=== PATIENT | male | born 1955 ===

== ENCOUNTER 2017-03-09 19:01 | Emergency (ER) | payer BC, OTHER ==
[2017-03-09] MEDS ORDERED: HYDROcodone/Acetaminophen 10/325 mg Tablet ONE (19:16)
--- NOTE | 2017-03-09 21:10 | CT ---
CT PELVIS WITHOUT CONTRAST 03/09/[address] was done following trauma. Axial slices were acquired, the coronal and sagittal taylor nstructions were done. No fracture, dislocation, or acute bony change was seen. The bony pelvis appears intact. The SI joint s and symphysis showed no widening. Each hip appears intact and each hip joint space was normal in wi dth. The lower lumbar spine is seen on the study which showed a Schmorl's node in the superior end plate o f L4. Incidentally noted on the study were fat filled bilateral inguinal hernias and some fluid fille d small bowel which was not significantly dilated. IMPRESSION: No acute traumatic findings. POS: HOME
--- NOTE | 2017-03-09 23:46 | CT ---
CT LUMBAR SPINE 03/09/[address] of the lumbar spine was done following trauma. Axial slices were acquired. Coronal and sagi ttal reconstructions were done, though their diagnostic quality is poor for some reason. There is an anterior compression fracture of the superior end plate of L2 vertebral body that is prob ably acute. There are irregularities of the superior end plates of L3 and L4 that appear to be chroni c Schmorl's nodes. I cannot confirm an acute fracture here. MRI would be more sensitive at dating an y of these issues. There is no dislocation at any level. At L3-L4, there is some mild general bulging of the disc with a slight left eccentric bulge. This mil dly effaces the thecal sac. There is also a minimal concentric bulge at the L4-L5 level. IMPRESSION: 1. Anterior compression fracture of superior end plate of L2, presumably acute. 2. Some compression and irregularity of the superior end plates of L3 and L4 that are presumed t o be on the basis of Schmorl's nodes. The appearance of these areas is somewhat more chronic, though ultimately MRI would be best at making sure there is no acute injury in those areas. 3. Bulging L3-L4 disc, slightly eccentric towards the left paracentral side. Mild effacement of thecal sac. 4. Other findings as described above. Report in agreement with preliminary reading by Dilma. POS: HOME
== END 2017-03-09 20:55 | disposition home or self-care (01) ==
LOC: BURERS 19:01
DX: S32.029A Unspecified fracture of second lumbar vertebra, initial encounter for closed fracture (principal); W14.XXXA Fall from tree, initial encounter
CPT/HCPCS: 72131; 72192